=== PATIENT | female | born 1980 | race Two or more races ===

== ENCOUNTER 2019-01-15 16:20 | Emergency (ER) | payer MEDICAID ==
[~2019-01-15] VITALS: Ht 157.5 cm; Wt 104.3 kg
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
--- NOTE | 2019-01-15 16:53 | NUR ---
ED Nurse Note: Urine specimen sent.
[2019-01-15 17:29] LABS: APPEARANCE,URINE CLEAR; BILIRUBIN, URINE NEGATIVE (NEGATIVE); GLUCOSE, URINE (UA) NEGATIVE (NEGATIVE); KETONES,URINE NEGATIVE (NEGATIVE); LEUKOCYTE ESTERASE ,URINE 1+ (NEGATIVE); NITRITE,URINE NEGATIVE (NEGATIVE); PH,URINE 5 (4.5-8.0); PROTEIN,URINE 1+ (NEGATIVE); UROBILINOGEN,URINE NORMAL MG/DL (0.0-1.0)
[2019-01-15 17:31] LABS: COLOR,URINE YELLOW
[2019-01-15 18:00] VITALS: BP 135/77
[2019-01-15] MEDS ORDERED: NORCO 5-325 TA1 EACH ORAL (18:16)
[2019-01-15] MEDS ORDERED: GENOPTIC O.O1 APPLIC LEFT EYE (18:16)
[2019-01-15] MEDS ORDERED: IBUPROFEN600 MG ORAL (18:16)
[2019-01-15] MEDS ORDERED: CEPHALEXIN500 MG ORAL (18:16)
[2019-01-15 18:25] VITALS: BP 147/80
--- NOTE | 2019-01-15 18:25 | NUR ---
ED Nurse Note: Pt cleared by ER MD for discharge. DC instructions/prescription was given and explained to pt and verbalized understanding of teachings. ID band removed. Pt is AAO x4, ambulatory and left with all personal belongings.
--- NOTE | 2019-01-15 19:45 | Diagnostic Imaging Report ---
EXAM: XR Lumbar Spine, 2 or 3 Views CLINICAL HISTORY: PAIN TECHNIQUE: Frontal and lateral views of the lumbar spine. COMPARISON: No relevant prior studies available. FINDINGS: Vertebrae: Unremarkable. No acute fracture. Normal alignment. Disc spaces: No acute findings. No significant narrowing. Soft tissues: Unremarkable. IMPRESSION: Normal lumbar spine x-rays.
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
== END 2019-01-15 18:25 | disposition home or self-care (01) ==
LOC: EDBD 16:20 → EMR 17:06
DX: S39.012A Strain of muscle, fascia and tendon of lower back, initial encounter (principal); N39.0 Urinary tract infection, site not specified; H01.006 Unspecified blepharitis left eye, unspecified eyelid; V43.52XA Car driver injured in collision with other type car in traffic accident, initial encounter; Y92.410 Unspecified street and highway as the place of occurrence of the external cause
CPT/HCPCS: 72020; 81003; 81025; 87086; 99283